=== PATIENT | male | born 1990 | race Caucasian/White ===

== ENCOUNTER 2018-08-23 20:35 | Emergency (ER) | payer MEDICAID ==
[2018-08-23] MEDS ORDERED: LORazepam 1 MG TAB PO PRN (20:46)
[2018-08-23] MEDS ORDERED: NS 1,000 ML IV ONE ×2 (20:46→20:56)
[2018-08-23] MEDS ORDERED: LORazepam 2 MG/ML INJ IVP PRN (20:46)
--- NOTE | 2018-08-23 20:50 | EDPHY ---
H & P Smoking Status: Never smoked Time Seen by Provider: 08/23/18 20:45 HPI/ROS: CHIEF COMPLAINT: Nausea vomiting abdominal pain HISTORY OF PRESENT ILLNESS: Patient has history of alcoholism last drink was at midnight just less than 24 hr ago. Has history of pancreatitis admitted twice in the past. Presents with nausea vomiting withdrawal and shaky. Associated with abdominal pain epigastric and right upper quadrant feels similar to the previous pancreatitis but not identical. No hematemesis or coffee-ground emesis and no recent injury or trauma. No fever or chills and no diarrhea. Symptoms moderate to severe. REVIEW OF SYSTEMS: Eye: no change in vision ENT: no sore throat Cardiac: no chest pain or syncope Pulmonary: no cough or SOB Abdomen: HPI Musculoskeletal: Diffuse myalgias. Skin: no rash Neuro: no headache Constitutional: no fever : no urinary symptoms A comprehensive 10 point review of systems is otherwise negative aside from elements mentioned in the history of present illness. PAST MEDICAL HISTORY: Alcoholism, pancreatitis, asthma, cardiomyopathy Social history: Currently homeless, last alcohol as above. General Appearance: Alert and conversant, cooperative. Eyes: No scleral icterus. ENT, Mouth: Normal mucous membranes. Respiratory: Normal respiratory effort, breath sounds equal, lungs are clear to auscultation. Cardiovascular: Regular rate and rhythm. Gastrointestinal: Epigastric tenderness but negative for Zhu's sign rebound or guarding. Neurological: Alert, face symmetric, normal motor and sensory in extremities. Mildly tremulous, not confused. Skin: Warm and dry, no rashes. Musculoskeletal: No peripheral edema. Psychiatric: Not agitated. Emergency Department course/MDM: CIWA protocol started prior to my evaluation, IV hydration, CBC chemistry LFT lipase and ethanol level. 2112: Alcohol intoxication, does not have clinical laboratory evidence of likely pancreatitis. 2210: Sleeping quietly, snoring, will need to be observed until lead awakens from his Ativan and ethanol, then discharge to detox. 2330: Signed out to [facility] plan as above. (Ramo Montemayor) Constitutional: Initial Vital Signs Temperature (C) 36.9 C 08/23/18 20:38 Heart Rate 123 H 08/23/18 20:38 Respiratory Rate 20 08/23/18 20:38 Blood Pressure 125/87 H 08/23/18 20:38 O2 Sat (%) 95 08/23/18 20:38 O2 Delivery Mode Room Air Allergies/Adverse Reactions: Penicillins Allergy (Verified 08/23/18 20:40) Home Medications: Medication Instructions Recorded Carvedilol 08/23/18 Symbicort 80-4.5 Mcg Inhaler 08/23/18 Medical Decision Making Other Provider: 11:39 p.m.- Patient feeling better, up and ambulatory to the bathroom. Offered discharge to the [facility], however he would like to go home and will be discharged with his girlfriend. (Judith Flores) - Data Points Laboratory Results: Laboratory Results 08/23/18 20:53 08/23/18 20:53 08/23/18 08/23/18 20:53 20:53 WBC 5.61 10^3/uL 10^3/uL (3.80-9.50) RBC 4.62 10^6/uL 10^6/uL (4.40-6.38) Hgb 15.0 g/dL g/dL (13.7-17.5) Hct 42.4 % % (40.0-51.0) MCV 91.8 fL fL (81.5-99.8) MCH 32.5 pg pg (27.9-34.1) MCHC 35.4 g/dL g/dL (32.4-36.7) RDW 12.7 % % (11.5-15.2) Plt Count 237 10^3/uL 10^3/uL (150-400) MPV 9.9 fL fL (8.7-11.7) Neut % (Auto) 47.2 % % (39.3-74.2) Lymph % (Auto) 29.8 % % (15.0-45.0) [place] % (Auto) 12.1 % % (4.5-13.0) Eos % (Auto) 9.8 % H % (0.6-7.6) Baso % (Auto) 1.1 % % (0.3-1.7) Nucleat RBC Rel Count 0.0 % % (0.0-0.2) Absolute Neuts (auto) 2.65 10^3/uL 10^3/uL (1.70-6.50) Absolute Lymphs (auto) 1.67 10^3/uL 10^3/uL (1.00-3.00) Absolute Monos (auto) 0.68 10^3/uL 10^3/uL (0.30-0.80) Absolute Eos (auto) 0.55 10^3/uL H 10^3/uL (0.03-0.40) Absolute Basos (auto) 0.06 10^3/uL 10^3/uL (0.02-0.10) Absolute Nucleated RBC 0.00 10^3/uL 10^3/uL (0-0.01) Immature Gran % 0.0 % % (0.0-1.1) Immature Gran # 0.00 10^3/uL 10^3/uL (0.00-0.10) Sodium 137 mEq/L mEq/L (135-145) Potassium 4.0 mEq/L mEq/L (3.5-5.2) Chloride 97 mEq/L mEq/L (97-110) Carbon Dioxide 27 mEq/l mEq/l (22-31) Anion Gap 13 mEq/L mEq/L (6-14) BUN 5 mg/dL L mg/dL (7-23) Creatinine 0.8 mg/dL mg/dL (0.7-1.3) Estimated GFR > 60 Glucose 102 mg/dL H mg/dL (70-100) Calcium 10.0 mg/dL mg/dL (8.5-10.4) Total Bilirubin 2.0 mg/dL H mg/dL (0.1-1.4) Conjugated Bilirubin 0.0 mg/dL mg/dL (0.0-0.5) Unconjugated Bilirubin 2.0 mg/dL H mg/dL (0.0-1.1) AST 130 IU/L H IU/L (17-59) ALT 80 IU/L H IU/L (21-72) Alkaline Phosphatase 112 IU/L IU/L (38-126) Total Protein 7.6 g/dL g/dL (6.3-8.2) Albumin 4.7 g/dL g/dL (3.5-5.0) Lipase 330 IU/L H IU/L (23-300) Ethyl Alcohol 254 mg/dL H mg/dL (0-10) Medications Given: Lorazepam (Ativan Injection) 0 mg IVP Q1H PRN; Protocol PRN Reason: Alcohol Withdrawal w/IV access Stop: 08/24/18 08:46 Last Admin: 08/23/18 21:00 Dose: 2 mg Discontinued Medications Sodium Chloride (Ns) 1,000 mls @ 0 mls/hr IV ONCE ONE; Wide Open PRN Reason: Protocol Stop: 08/23/18 20:47 Last Admin: 08/23/18 20:58 Dose: 1,000 mls Sodium Chloride (Ns) 1,000 mls @ 0 mls/hr IV EDNOW ONE; Wide Open PRN Reason: Protocol Stop: 08/23/18 20:57 Last Admin: 08/23/18 21:02 Dose: 1,000 mls Ondansetron HCl (Zofran) 4 mg IVP EDNOW ONE Stop: 08/23/18 21:14 Last Admin: 08/23/18 22:20 Dose: Not Given Departure - Departure Disposition: Home, Routine, Self-Care Clinical Impression: Alcoholic intoxication Qualifiers: Complication of substance-induced condition: uncomplicated Qualified Code(s): F10.920 - Alcohol use, unspecified with intoxication, uncomplicated Condition: Good Instructions: Alcohol Intoxication (ED) Referrals: [facility],. [Clinic] - As per Instructions
[2018-08-23 21:02] LABS: PLATELET COUNT 237 10^3/uL (150-400)
[2018-08-23] MEDS ORDERED: ONDANSETRON 4 MG/2 ML VIAL IVP ONE (21:13)
[2018-08-23 23:54] VITALS: BP 114/72
== END 2018-08-23 23:54 | disposition home or self-care (01) ==
DX: R11.2 Nausea with vomiting, unspecified (principal); F10.10 Alcohol abuse, uncomplicated; E86.9 Volume depletion, unspecified; K85.90 Acute pancreatitis without necrosis or infection, unspecified; Z59.0 Homelessness
CPT/HCPCS: 96374; G0480; J2060

== ENCOUNTER 2018-09-16 18:13 | Inpatient (IN) | payer MEDICAID | END 2018-09-19 11:21 | disposition home or self-care (01) | LOC: F3E 09-18 14:08 → F2N 21:10 ==

== ENCOUNTER 2018-09-25 11:31 | Emergency (ER) | payer MEDICAID | END 2018-09-25 15:22 | disposition home or self-care (01) ==

== ENCOUNTER 2018-09-29 21:20 | Inpatient (IN) | payer MEDICAID | END 2018-10-01 00:39 | disposition left against medical advice (07) | LOC: F3E 23:13 ==